=== PATIENT | female | born 1980 | race Caucasian/White ===

== ENCOUNTER 2017-08-30 08:00 | Outpatient (CLI) | payer OTHER ==
[2017-08-30 12:49] LABS: BILIRUBIN,URINE NEGATIVE (NEGATIVE); GLUCOSE, URINE (UA) NEGATIVE (NEGATIVE); KETONES,URINE (UA) 15 mg/dL (NEGATIVE); LEUKOCYTE ESTERASE, URINE NEGATIVE (NEGATIVE); NITRITE,URINE NEGATIVE (NEGATIVE); OCCULT BLOOD,URINE NEGATIVE (NEGATIVE); PROTEIN,URINE NEGATIVE (NEGATIVE); UROBILINOGEN,URINE 0.2 (NORMAL) E.U./dL (NORMAL)
[2017-08-30 12:50] LABS: CLARITY,URINE CLEAR (CLEAR)
[2017-08-30 13:19] LABS: BACTERIA,URINE Moderate /HPF (None Seen); RBC,URINE 0-5 /HPF (0-5); SQUAMOUS EPITHELIAL CELL,UR FEW Squamous (<= Few)
[2017-08-30 13:20] LABS: AMORPHOUS SEDIMENT,UR Moderate /LPF
[2017-08-30 19:04] LABS: BASOPHILS % (AUTO) 0.5 %; EOSINOPHILS # (AUTO) 0.1 10^3/uL (0.0-0.7); EOSINOPHILS % (AUTO) 1.1 %; HGB - HEMOGLOBIN 12.5 g/dL (12.0-16.0); LYMPHOCYTES # (AUTO) 0.9 10^3/uL (1.5-3.5); LYMPHOCYTES % (AUTO) 10.8 %; MEAN CORPUSCULAR HEMOGLOBIN 31.8 pg (27.0-31.0); MEAN CORPUSCULAR HGB CONC 33.4 g/dL (32.0-36.0); MEAN CORPUSCULAR VOLUME 95.3 fL (81.0-99.0); MEAN PLATELET VOLUME 10.5 fL (7.9-10.8); MONOCYTES # (AUTO) 0.4 10^3/uL (0.0-1.0); MONOCYTES % (AUTO) 4.7 %; NEUTROPHILS # (AUTO) 7.1 10^3/uL (1.5-6.6); NEUTROPHILS % (AUTO) 82.9 %; PLT - PLATELET COUNT 211 10^3/uL (130-450); RED BLOOD COUNT 3.91 10^6/uL (4.20-5.40); RED CELL DISTRIBUTION WIDTH 13.3 % (12.0-15.0); WHITE BLOOD COUNT 8.5 x10^3/uL (4.8-10.8)
[2017-08-31 09:07] LABS: HEPATITIS B SURFACE ANTIGEN NON-REACTIVE (NON-REACTIVE); HEPATITIS C ANTIBODY NON-REACTIVE (NON-REACTIVE)
[2017-08-31 15:32] LABS: HIV AG/AB 4TH GEN NON-REACTIVE (NON-REACTIVE)
== END 2017-08-30 08:01 | disposition home or self-care (01) ==
LOC: LAB.N 08:00
PROVIDERS: ATTEND Nurse Practitioner Obstetrics & Gynecology
DX: Z36.9 Encounter for antenatal screening, unspecified (principal)
CPT/HCPCS: 36415; 81001; 81599; 85025; 86592; 86762; 86803; 86850; 86900; 86901; 87340; 87389

== ENCOUNTER 2017-11-17 07:39 | Outpatient (CLI) | payer OTHER ==
--- NOTE | 2017-11-17 09:49 | Ultrasound Report ---
Procedure Date: 11/17/2017 Accession Number: [id number] / [id number] Procedure: US - OB Detailed Eval CPT Code: FULL RESULT: EXAM: OB Detailed Eval DATE: 11/17/2017 9:16 AM CLINICAL HISTORY: ENCTR FOR SUPRVSN OF NORMAL , 2ND TRIM TECHNIQUE: Real-time scanning was performed with advertising representative static images obtained. COMPARISON: None LAST MENSTRUAL PERIOD: Unsure US Age: 22 weeks 1 days EFW Hadlock: 475 grams Heart Rate: 154 bpm US EDC: 03/22/2018 BPD Hadlock: 22 weeks 1 days; Mean mm 53 HC Hadlock: 22 weeks 2 days; Mean mm 201 AC Hadlock: 22 weeks 0 days; Mean mm 170 FL Hadlock: 22 weeks 1 days; Mean mm 38 Presentation: Variable Placental Location: Anterior Cervical Length: 4 cm Amniotic Fluid: VINCENT Subjectively normal cm; MVP 5.4 cm FINDINGS: There is a single live intrauterine gestation in variable presentation with an anterior placenta without evidence of previa with a heart rate of 154 bpm and a normal-appearing three-vessel cord with central insertion into the placenta. The estimated weight is 475 g. The following anatomic structures were visualized and appear normal: The intracranial contents, including the ventricles and posterior fossa; the lips and orbits; the spine; the heart, including 4 chamber view and outflow tracts, and diaphragm; the abdominal contents, including the stomach, the bilateral kidneys, and urinary bladder, as well as a normal 3-vessel cord insertion; 4 limbs. IMPRESSION: Single viable intrauterine gestation with a sonographic age of 22 weeks and 1 day.
== END 2017-11-17 07:40 | disposition home or self-care (01) ==
LOC: DI 07:39
PROVIDERS: ATTEND Registered Nurse
DX: Z34.82 Encounter for supervision of other normal pregnancy, second trimester (principal)
CPT/HCPCS: 76811

== ENCOUNTER 2017-12-22 08:00 | Outpatient (CLI) | payer OTHER ==
[2017-12-22 18:49] LABS: BASOPHILS % (AUTO) 0.3 %; EOSINOPHILS # (AUTO) 0.1 10^3/uL (0.0-0.7); EOSINOPHILS % (AUTO) 0.8 %; HGB - HEMOGLOBIN 11.5 g/dL (12.0-16.0); LYMPHOCYTES # (AUTO) 0.8 10^3/uL (1.5-3.5); LYMPHOCYTES % (AUTO) 7.7 %; MEAN CORPUSCULAR HEMOGLOBIN 32.7 pg (27.0-31.0); MEAN CORPUSCULAR HGB CONC 34.4 g/dL (32.0-36.0); MEAN CORPUSCULAR VOLUME 95.2 fL (81.0-99.0); MONOCYTES # (AUTO) 0.5 10^3/uL (0.0-1.0); MONOCYTES % (AUTO) 4.7 %; NEUTROPHILS # (AUTO) 8.7 10^3/uL (1.5-6.6); NEUTROPHILS % (AUTO) 86.5 %; PLT - PLATELET COUNT 222 10^3/uL (130-450); RED BLOOD COUNT 3.52 10^6/uL (4.20-5.40); RED CELL DISTRIBUTION WIDTH 13.4 % (12.0-15.0); WHITE BLOOD COUNT 10.1 x10^3/uL (4.8-10.8)
== END 2017-12-22 08:01 | disposition home or self-care (01) ==
LOC: LAB.N 08:00
PROVIDERS: ATTEND Nurse Practitioner Obstetrics & Gynecology
DX: Z36.9 Encounter for antenatal screening, unspecified (principal)
CPT/HCPCS: 36415; 82950; 85025; 86850

== ENCOUNTER 2018-02-24 14:37 | Outpatient (CLI) | payer OTHER ==
--- NOTE | 2018-02-24 16:09 | Ultrasound Report ---
Reason: UTERINE SIZE DATE DISCREPANCY, THIRD TRIMESTER Procedure Date: 02/24/2018 Accession Number: [id number] / [id number] Procedure: US - OB F/U or Repeat CPT Code: FULL RESULT: EXAM: COMPLETE OBSTETRICAL ULTRASOUND EXAM DATE: 02/24/2018 03:32 PM. CLINICAL HISTORY: anatomic survey. COMPARISON: OB DETAILED EVALUATION 11/17/2017 7:51 AM. TECHNIQUE: Real-time sonographic evaluation of the fetus performed by the wallpaper embosser helper. Multiple sales representative leather goods static images were saved for review. DATING: Established EGA 35 weeks 2 days with ALEXIS 03/29/2018 based on the referring provider. ALEXIS 03/14/2018 based on the previous ultrasound performed in the second trimester. EGA 37 weeks 3 days with ALEXIS 03/14/2018 based on the current ultrasound. GENERAL EVALUATION Angel . Cardiac activity: 137 bpm. movement: Visualized. Presentation: Cephalic. Placenta: Anterior position. No evidence for previa. Amniotic fluid: VINCENT 18.7 MVP 6.3 cm. BIOMETRY Bi-Parietal Diameter (BPD): 9.1 cm, 36 weeks 6 days Head Circumference (HC): 33.9 cm, 39 weeks 0 days Abdominal Circumference (AC): 33.7 cm, 37 weeks 4 days Femur Length (FL): 7.1 cm, 36 weeks 2 days Estimated Weight: 3185 g, 93rd percentile for 35 weeks 2 days. MATERNAL STRUCTURES Uterus: Unremarkable. Cervix: Long and closed. Transabdominal length 5.3 cm. Free fluid: None. IMPRESSION: 1. Angel live intrauterine with gestational age 35 weeks 2 days based on obstetric provider established due date. 2. Estimated weight is at the 93rd percentile for the established due date. RADIA
== END 2018-02-24 14:38 | disposition home or self-care (01) ==
LOC: DI 14:37
PROVIDERS: ATTEND Registered Nurse
DX: O26.843 Uterine size-date discrepancy, third trimester (principal); Z3A.35 35 weeks gestation of pregnancy
CPT/HCPCS: 76816

== ENCOUNTER 2018-02-27 10:08 | Outpatient (CLI) | payer OTHER | END 2018-02-27 10:09 | disposition home or self-care (01) | LOC: LAB.R 10:08 | PROVIDERS: ATTEND Registered Nurse | DX: Z34.83 Encounter for supervision of other normal pregnancy, third trimester (principal) | CPT/HCPCS: 87077; 87081 ==

== ENCOUNTER 2018-03-20 13:38 | Inpatient (IN) | payer OTHER ==
[~2018-03-20 13:38] MED LIST: ONDANSETRON 4 MG/2 ML VIAL IVP PRN
--- NOTE | 2018-03-20 13:46 | HISTORY & PHYSICAL EXAMINATION ---
Admit History - Visit Reason Visit Reason: Membranes rupture (@ 1305, clear amniotic fluid; ROM + positive) - : 2 Parity: 1 Premature: 0 Ectopic: 0 : 0 Care: positive: IW (x11 visit) Risk/History: positive: None Complications This : positive: Other (AMA; GBS positive; macrosomia on growth scan) Smoking Status: Never smoker - Mother's Labs Mother's Blood Type: positive: O Mother's RH: positive: Negative GBS: positive: Group B Strep Positive Rubella Status: positive: Immune Meds/Allgy - Allergies Allergies/Adverse Reactions: Allergies Allergy/AdvReac Type Severity Reaction Status Date / Time tetracycline Allergy Rash Verified 03/20/18 14:25 Review of Systems - Constitutional Constitutional: reports: Fatigue. denies: Fever, Chills - Eyes Eyes: denies: Blurred vision, Spots in vision - Cardiovascular Cariovascular: denies: Irregular heart rate, Palpitations, Chest pain - Respiratory Respiratory: denies: Cough, SOB at rest, SOB with exertion - Gastrointestinal Gastrointestinal: denies: Abdominal pain, Constipation, Diarrhea, Change in bowel habits, Nausea, Vomiting - Genitourinary Genitourinary: reports: Frequency, Urgency. denies: Dysuria - Musculoskeletal Musculoskeletal: denies: Muscle pain, Back pain - Integumentary Integumentary: denies: Rash, Pruritis, Lesions - Neurological Neurological: denies: General weakness, Focal weakness, Headache, Numbness - Psychiatric Psychiatric: denies: Depression, Anxiety - All Other Systems All Other Systems: reports: Reviewed and negative Physical - Abdominal Exam Vital Signs: 142/85 hr 99 Contraction Frequency (min/apart): rare Contraction Intensity: positive: Mild Uterine Resting Tone: positive: Soft - Monitoring Heart Rate Baseline: 145 Strip Review: positive: Category I - Presentation Presentation: positive: Vertex - Vaginal Exam Membranes: positive: Membranes ruptured - Speculum Exam Speculum Exam Performed: positive: No Findings: positive: Other (ROM + positive) - Other Notes Labor Progress Note/Additional Text: Record Physician: Soleadd Renteria DO EDC: 03/29/2018 Date printed: 03/20/2018 (38.71 wks ) Demographics Name EL DELGADILLO 1980 Age [age] Years Old Race White Status Address [address] Home Phone Other Phone [facility] [place] [address] # [phone] Occupation Work Phone Patient # Insurance [employer] [facility] Policy # [id number] Guarantor EL DELGADILLO FOB Involved Age Race Occupation FOB Phone Support Person Home Phone Relationship [facility] Feeding plans Previous Pregnancies G 2 P 1 Term 1 0 LC 1 Ab 0 SAB 0 EAB 0 Ectopic 0 Mult Preg 0 No Date Wks Gest Delivery Type Hrs Labor Anes Location Infant Comments Sex Weight 1 40 5 [place], [place] M 6lbs 6oz EDC / Dating Information Current best EDC: 03/29/2018 Cycle Interval: LMP: 06/22/2017 =EDC 03/29/2018 Reliability: Pill period? Preg Test Date Initial Exam =EDC Date Steth Tones =EDC Date Quickening =EDC U/S Date GA =EDC Allergies TETRACYCLINE (Critical) Medications [facility] TABLET ( VIT-FE FUMARATE-FA TABS) Take one tablet by mouth daily Current Problems Risk Factors Group B streptococcus carrier (ICD-V02.51) (REP59-O10.330) Supervision of normal (ICD-V22.1) (ZYN29-D00.90) Maternal age = [age] Years Old Prior Operation(s): [place] Teeth (02/25/1992) Smoking: Never smoker Laboratory Test Date Result Hemoglobin Hematocrit ABO / Rh 08/30/2017 O- Hellen Rubella Serology (RPR) 08/30/2017 negative HBsAg 08/30/2017 negative Chlamydia DNA GC DNA Urine Culture PAP HIV MSAFP MSAFP MOM GCT 3hr GTT Fasting 1 hr 2 hr 3 hr Test Date Result U/S NST Amnio RhoGam KB (Fetaldex) Group B Strep cult El Delgadillo is a 37 y/o @ 38w5d by first trimester US. She received care beginning in the first trimester x11 total visits. She is Rh negative & received Rhogam per protocol @ 28 weeks' gestation. Her was complicated by AMA status; she had NIPT screening, which was low-risk & predicted male sex. She had a normal screening anatomy US. She has measured consistently size greater than dates in the third trimester & had a growth ultrasound that demonstrated a normal AFV & EFW 93rd percentile. Pt was counseled re: risks related to increased size & pt declined intervention, specifically declined primary LTCS, and elected to proceed with trial of labor & attempt at vaginal delivery. She articulated full understanding of the risks, including injury or . El's has otherwise been uncomplicated. She was vaccinated against tdap & influenza per protocol during the course of her . She screened positive for GBS @ 36 weeks' gestation. PMH:Unremarkable PSH: [place] tooth extraction 1991; no complications OBhx: 2009 FTSVD male: MAX; 6#6oz, unmedicated GYNhx: Denies hx of STI, no hx abnormal pap, unsure when last conducted, needs pp pap Sochx: to Johny, denies DV; works in the arts, no financial concerns, denies ETOH/drugs/tobacco Famhx: Mental illness, rheumatoid arthritis. PE: GEN: AAOx3, NAD [place] gravid female HEENT: Grossly normocephalic, atraumatic RESP: CTA b/l t/o CARDIAC: RRR nls1s2, no murmur ABD: Gravid, NT; occ palp mild contraction; presentation cephalic; EFW 8 .5# OB: EFM Bl 145bpm, +accels, no decels, mod antony; toco: UCs rare; SVE deferred secondary to SROM : No lesions, leakage of CAF MS: FROM t/o, no lesion, no deformity, no edema SKIN: warm, well-perfused, c/d/i, no lesion NEURO: no focal deficit PSYCH: mild anxiety, otherwise pleasantly conversant Assessment: 37 y/o @ 38w5d by first trimester US s/p SROM @ 1305 for CAF, ROM + positive GBS positive FHTs Cat I Adequate pain control w/o analgesia/anesthesia, desires unmedicated delivery Plan: 1. Admit to FBP 2. CBC/clot to hold 3. Begin PCN per protocol for IPAP 4. Reviewed pain management options 5. Reassess cervical status only w/ clear clinical indication--minimize SVE secondary to SROM Plan for Labor - Plan For Labor I expect patient to be DC'd or transferred within 96 hours.: Yes Plan for Labor: Assessment: 37 y/o @ 38w5d by first trimester US s/p SROM @ 1300 GBS positive CAF FHTs Adequate pain control w/o analgesia/anesthesia, desires unmedicated delivery Plan: 1. Admit to FBP 2. CBC/clot to hold 3. Begin PCN per protocol for IPAP 4. Reviewed pain management options 5. Reassess cervical status only w/ clear clinical indication--minimize SVE secondary to SROM
[2018-03-20] MEDS ORDERED: LIDOCAINE 1% 50 ML MDV ONE (13:47)
[2018-03-20] MEDS ORDERED: OXYTOCIN/SODIUM CHLORIDE 500 ML IV ONE (13:48)
[2018-03-20] MEDS ORDERED: miSOPROStol 200 MCG TABLET ONE (13:48)
[2018-03-20] MEDS ORDERED: ACETAMINOPHEN 325 MG TABLET PO SCH (14:00)
[2018-03-20] MEDS: SODIUM CHLORIDE FLUSH 0.9% 10 ML SYRINGE IVP SCH (14:20)
[2018-03-20] MEDS: LACTATED RINGERS 1,000 ML IV SCH ×2 (14:21→21:47)
[2018-03-20 14:40] LABS: BASOPHILS # (AUTO) 0.1 10^3/uL (0.0-0.1); BASOPHILS % (AUTO) 0.8 %; EOSINOPHILS % (AUTO) 0.3 %; HGB - HEMOGLOBIN 11.2 g/dL (12.0-16.0); LYMPHOCYTES % (AUTO) 8.3 %; MEAN CORPUSCULAR HGB CONC 34.4 g/dL (32.0-36.0); MEAN CORPUSCULAR VOLUME 90.2 fL (81.0-99.0); MEAN PLATELET VOLUME 10.8 fL (7.9-10.8); MONOCYTES # (AUTO) 0.5 10^3/uL (0.0-1.0); MONOCYTES % (AUTO) 3.7 %; NEUTROPHILS # (AUTO) 10.8 10^3/uL (1.5-6.6); NEUTROPHILS % (AUTO) 86.9 %; PLT - PLATELET COUNT 204 10^3/uL (130-450); RED BLOOD COUNT 3.61 10^6/uL (4.20-5.40); RED CELL DISTRIBUTION WIDTH 13.4 % (12.0-15.0); WHITE BLOOD COUNT 12.4 x10^3/uL (4.8-10.8)
[2018-03-20] MEDS ORDERED: PENICILLIN G POTASSIUM 5,000,000 UNIT in SODIUM CHLORIDE 0.9% MINIBAG 100 ML IV ONE (15:00)
[2018-03-20 15:38] LABS: RUPTURE OF MEMBRANES PLUS POSITIVE (NEGATIVE)
[2018-03-20] MEDS ORDERED: miSOPROStol 100 MCG TABLET ONE (16:47)
[2018-03-20] MEDS: miSOPROStol 100 MCG TABLET BC SCH ×2 (16:52→21:09)
--- NOTE | 2018-03-20 16:59 | PROVIDER PROGRESS NOTE ---
Labor Progress Note - Uterine Monitoring Uterine Monitoring Mode: positive: External toco Contraction Frequency (min/apart): RARE Contraction Intensity: positive: Mild Uterine Resting Tone: positive: Soft - Monitoring Monitor Mode: positive: External ultrasound Heart Rate Baseline: 150 Heart Rate Variability: positive: Moderate (6-25 bmp) Accelerations: positive: Present, 15x15 Decelerations: positive: Variable (unclear monitoring from IA to CEFM: 70s but unable to compare to maternal HR secondary to no pulse ox in place; maternal HR when assessed high 70s-80s) Strip Review: positive: Category II - Vaginal Exam Dilation (in cm): 2 Effacement (%): thick Station: Ballotable Cervical Position: Midposition - Labor Progress Note Labor Progress Note/Additional Text: S: Shruthi is doing well. She is anxious to be in active labor. She reports some mild cramping but no other discomfort. She has decided that intervention is preferable at this point vs. expectant management, particularly given SROM, GBS + status, unfavorable cervical status & rare contraction activity. Johny is present @ the bedside & is supportive. O: AAOx3, NAD [place] gravid female VSS: T 98.3, HR 99, BP 142/85, RR 18 EFM: BL 150bpm, +accels, isolated unclear deceleration when transitioning from IA to CEFM, 70s, maternal HR not assessed, unable to clearly differentiate, otherwise no decelerations, mod variability TOCO: rare uterine contractions SVE: 2/thick/high, midposition, ongoing leakage of CAF A: 37 y/o @ 38w5d by first trimester US, SROM @ 1305, for a total ruptured duration of ~4 hours, afebrile, CAF GBS positive s/p 1 dose IV PCN for prophylaxis Unfavorable cervical status, not in labor FHTs cat I w/ exception of one unclear possible deceleration, no evidence of hypoxemia Adequate pain control w/o analgesia/anesthesia P: 1. Reviewed options for management & risks/benefits, pt elects misoprostol 50mcg buccally q 4 hours, will begin now, continue per protocol 2. CEFM from here on out & maternal pulse oximetry--will place FSE if tracing becomes unclear 3. Continue GBS prophylaxis w/ IV PCN per protocol 4. Minimize SVE to only those clinically indicated secondary to SROM, no labor 5. Pt aware of pain management options, will request as she desires, hoping for unmedicated delivery 6. Reviewed plan of care w/ pt, partner & RN @ bedside; all in agreement, without concerns.
[2018-03-20] MEDS ORDERED: PENICILLIN G POTASSIUM 2,500,000 UNIT in SODIUM CHLORIDE 0.9% 100ML 100 ML IV SCH ×4 (19:00)
[2018-03-20] MEDS ORDERED: TERBUTALINE 1 MG/ML VIAL SUBQ ONE ×2 (21:45→22:48)
--- NOTE | 2018-03-20 22:37 | PROVIDER PROGRESS NOTE ---
Labor Progress Note - Uterine Monitoring Uterine Monitoring Mode: positive: External toco Contraction Frequency (min/apart): 2-3 Contraction Intensity: positive: Strong Uterine Resting Tone: positive: Soft - Monitoring Monitor Mode: positive: Spiral electrode Heart Rate Baseline: 150 Heart Rate Variability: positive: Moderate (6-25 bmp) Accelerations: positive: Present, 15x15 Decelerations: positive: Early, Late (to ronda in 120s w/ spontaneous return to baseline < 60 seconds) Strip Review: positive: Category II (w/o evidence of hypoxemia) - Vaginal Exam Dilation (in cm): 2 Effacement (%): 60 Station: Ballotable Cervical Position: Midposition - Labor Progress Note Labor Progress Note/Additional Text: S: Shruthi reports increased cramping w/ uterine contractions. O: AAOx3, NAD [place] gravid female VSS T: 96.8, HR 90bpm, BP 124/56 EFM: BL 150bpm, + accels, + decels: early, late & variable to ronda in 90s on external doppler, FSE placed & decels notable, not recurrent to ronda in 110s w/ spontaneous return to baseline <60 seconds, moderate variability SVE: AROM forebag for copious CAF, 2/60/ballotable, position difficult to appreciate secondary to minimal cervical dilatation, FSE placed A: 37y/o @ 38w5d by first triemester US, SROM @ 1305, for a total ruptured duration of 9 hours, 15 minutes, afebrile GBS positive s/p 3 doses IV PCN for prophylaxis FHTs cat II w/o evidence of hypoxemia Unfavorable cervical status s/p 2 doses buccal misoprostol, now danielle regularly Adequate pain control w/o analgesia/anesthesia, desires unmedicated delivery macrosomia on growth ultrasound P: 1. Reviewed implications of FHTs & present cervical status (remote from delivery) w/ pt & partner @ length 2. Reviewed optimal maternal positioning to facilitate descent 3. Continue GBS prophylaxis w/ IV PCN per protocol 4. Reassess cervical status x2 hours, earlier PRN; additional misoprostol administration dependent on cervical status & tolerance 5. Reviewed plan of care w/ pt, partner & RN @ bedside; all in agreement, without concerns. Dr. Gupta, DO, back-up CONCRETE PIPE MACHINE OPERATOR apprised of clinic scenario.
--- NOTE | 2018-03-20 22:48 | PROVIDER PROGRESS NOTE ---
Labor Progress Note - Uterine Monitoring Uterine Monitoring Mode: positive: External toco Contraction Frequency (min/apart): 3-4 Contraction Intensity: positive: Strong Uterine Resting Tone: positive: Soft - Monitoring Monitor Mode: positive: Spiral electrode Heart Rate Variability: positive: Moderate (6-25 bmp) Accelerations: positive: Present, 15x15 Decelerations: positive: Late Strip Review: positive: Category II - Vaginal Exam Dilation (in cm): 3 Effacement (%): 70 Station: Ballotable Cervical Position: Midposition - Labor Progress Note Labor Progress Note/Additional Text: Shruthi is uncomfortable w/ her contractions. She has not been able to assume the positions she prefers because of heart rate decelerations. SVE: slightly changed FHTs concerning for now repetitive late decelerations w/ steeper ronda & slower recovery; terbutaline 0.2mg SQ administered IV fluid bolus begun Recommend, given FHTs and still remote from delivery & unable to expedite, delivery. Dr. Gupta notified, OR team notified, anesthesia & peds notified via clerical warehouse worker. Pt & partner concur, will plan to proceed to primary LTCS for intolerance of labor, provided Dr. Gupta concurs on her arrival.
[2018-03-20] MEDS ORDERED: CITRIC ACID/SODIUM CITRATE 15 ML UDC PO ONE ×2 (22:50→23:17)
[2018-03-20] MEDS ORDERED: ceFAZolin 2 GM/50 ML 2 GM/50 ML BAG IV SCH (23:00)
--- NOTE | 2018-03-20 23:12 | ANESTHESIA ---
Pre-Anesthesia VS, & Labs - Diagnosis distress - Procedure emerfency c section Vital Signs: Temp Pulse Resp BP Pulse Ox 36.7 C 92 15 142/85 H 100 03/20/18 13:48 03/20/18 13:48 03/20/18 13:48 03/20/18 13:48 03/20/18 13:48 Height 5 ft 8 in Weight (kg) 83.915 kg - NPO Other (less than 4 hours) - Is Patient ?: Yes - Lab Results Current Lab Results: Laboratory Tests 03/20/18 14:32: WBC 12.4 H, RBC 3.61 L, Hgb 11.2 L, Hct 32.5 L, MCV 90.2, MCH 31.0, MCHC 34.4, RDW 13.4, Plt Count 204, MPV 10.8, Neut # (Auto) 10.8 H, Lymph # (Auto) 1.0 L, [place] # (Auto) 0.5, Eos # (Auto) 0.0, Baso # (Auto) 0.1, Absolute Nucleated RBC 0.01, Nucleated RBC % 0.0 Fish Bones: 03/20/18 14:32 Home Medications and Allergies Active Medications Acetaminophen (Tylenol) 650 mg PO Q6H [facility] Last Admin: 03/20/18 14:22 Dose: Not Given Lactated Ringer's (Lr) 1,000 mls @ 150 mls/hr IV .Q6H40M [facility] Last Admin: 03/20/18 21:47 Dose: 150 mls/hr Penicillin G Potassium 2,500, (000 unit/ Sodium Chloride) 100 mls @ 200 mls/hr IV Q4H [facility] Last Infusion: 03/20/18 20:45 Dose: Infused Cefazolin Sodium/Dextrose (Ancef 2 Gm/50 Ml) 2 gm in 50 mls @ 100 mls/hr IV ONCE [facility] Misoprostol (Cytotec) 50 mcg BC Q4H [facility] Last Admin: 03/20/18 21:09 Dose: 50 mcg Ondansetron HCl (Zofran Inj) 4 mg IVP Q4H PRN PRN Reason: Nausea / Vomiting Sodium Chloride (Normal Saline Flush 0.9%) 10 ml IVP PRN PRN PRN Reason: NEEDED PER PROVIDER ORDERS Sodium Chloride (Normal Saline Flush 0.9%) 10 ml IVP 0100,0900,1700 DREW Last Admin: 03/20/18 14:20 Dose: 10 ml Terbutaline Sulfate (Terbutaline) 0.25 mg SUBQ ONCE ONE Stop: 03/20/18 22:49 Allergies/Adverse Reactions: Allergies Allergy/AdvReac Type Severity Reaction Status Date / Time tetracycline Allergy Rash Verified 03/20/18 14:25 Anes History & Medical History - Anesthetic History Anesthesia Complications: reports: No previous complications Family history of Anesthesia Complications: Denies Family history of Malignant Hyperthermia: Denies - Medical History Cardiovascular: reports: None Pulmonary: reports: None Gastrointestinal: reports: None Urinary: reports: None Neuro: reports: None Musculoskeletal: reports: None Endocrine/Autoimmune: reports: None Blood Disorders: reports: None Skin: reports: None Smoking Status: Never smoker Psychosocial: reports: No issues indicated - Obstetrical History : 2 Parity: 1 Events: positive: None Complications: positive: Other (AMA; GBS positive; macrosomia on growth scan) Exam General: Alert, Oriented x3 Mouth Opening: Greater than 4 Fingerbreadths Neck Mobility: Normal Mallampati classification: I Thyromental Distance: greater than 6 cm Respiratory: Lungs clear Cardiovascular: Regular rate Neurological: Normal speech Mental/Cognitive Status: Alert/Oriented X3 Cognitive Status: Within normal limits Plan Anesthesia Type: Spinal Consent for Procedure(s) Verified and Reviewed: Yes Code Status: Attempt Resuscitation ASA classification: 1-Healthy patient Is this case an emergency?: Yes
[2018-03-20] MEDS ORDERED: LACTATED RINGERS 1,000 ML IV ONE ×2 (23:22→23:53)
[2018-03-21] MEDS ORDERED: MAGNESIUM HYDROXIDE 2,400 MG/30 ML UDC PO PRN (00:46)
--- NOTE | 2018-03-21 00:46 | OPERATIVE REPORT ---
Operative Report - General Admit Date: 03/20/18 - Other Other Information/Narrative: Date of Operation: 03/20/2018 Surgeon: Brittany Gupta DO FACOG Access Control Specialist: ATUL [employer] Sales Professional: Zane Simmons CRNA Anesthesia: Spinal Pre-op Dx: 1. 37 yo with a 38w5d IUP 2. NRFHT's Post-op Dx 1. 37 yo with a 38w5d IUP 2. NRFHT's Procedure: delivery Findings: Single viable male infant in VTX presentation. Apgars 8/9. Normal uterus, ovaries and fallopian tubes. Specimens: 1. Cord blood 2. Placenta to pathology Drains: 1. Gaona catheter to gravity 2. Prevena wound vac EBL: 800 mL Complications: None [id number]
[2018-03-21] MEDS: fentaNYL 100 MCG/2 ML VIAL ONE ×3 (00:59→01:25)
[2018-03-21] MEDS: oxyCODONE 5 MG TABLET PO SCH ×3 (01:47→10:16)
[2018-03-21] MEDS ORDERED: KETOROLAC 30 MG/ML VIAL IVP ONE (01:47)
[2018-03-21] MEDS ORDERED: HYDROmorphone 2 MG/ML VIAL IVP PRN (01:47)
[2018-03-21] MEDS ORDERED: KETOROLAC 30 MG/ML VIAL IVP SCH (01:55)
[2018-03-21] MEDS: ACETAMINOPHEN 500 MG TABLET PO SCH ×3 (02:20→18:16)
[2018-03-21] MEDS: SODIUM CHLORIDE FLUSH 0.9% 10 ML SYRINGE IVP PRN ×2 (03:19→16:11)
--- NOTE | 2018-03-21 03:26 | CONSULTATION NOTE ---
DATE OF CONSULTATION: 03/20/2018 Physician: Brittany Gupta DO IDENTIFICATION: A 37-year-old G2, P1-0-0-1 with a 38-5/7-week intrauterine consistent with an 8-week ultrasound. HISTORY OF PRESENT ILLNESS: The patient is a patient of [facility] [place] who presented earlier today with complaints of loss of fluid. It was noted to be at about 1305. Clear amniotic fluid was noted. A ROM Plus was performed, which turned out to be positive. The patient's initial cervical exam was deferred at the time of presentation secondary to minimizing the chance of the patient getting chorioamnionitis. The patient was given Cytotec p.o. in order to ripen her cervix. On initial examination, baseline heart tones were in the 140s with accels; there are no decelerations. Moderate variables were noted. Contractions were rare. The patient was monitored and started on penicillin for being GBS positive. There were concerns, however, of a nonreassurance. Patient showed a slow increase in her baseline rising to the 150s. decels were noted to be down to the 80s. The patient was given terbutaline, and the variable decelerations and late decelerations were improved. Cervical examination showed that the patient had only progressed to 3 cm dilation. Given that the patient was remote from delivery and showing signs of nonreassuring heart tones, I recommended to patient that we proceed to a delivery. Further options are to proceed to a vaginal trial of labor, but, given what is going on so far, I am concerned that we may have to perform a crash delivery should we continue a vaginal trial of labor. I discussed with patient the risks, benefits, alternatives, indications, and expectations of a delivery. Included in our discussion was the risk of hemorrhage, infection and damage to surrounding organs, which may be an inadvertent laceration, cauterization or ligation of adjacent intestines, bladder, and ureters. The patient may proceed to vaginal after a delivery for her next , given the indication for delivery and that she has had a previous vaginal delivery. After all of the patient's questions were answered to her satisfaction, she verbalized her desire to proceed with delivery. Consent forms have been signed. PAST MEDICAL HISTORY: None. PAST SURGICAL HISTORY: None. ALLERGIES: TETRACYCLINE. SOCIAL HISTORY: Denies any tobacco, alcohol, or illicit drug use. Her is Johny. This is a male named Tho. PAST OBSTETRICAL HISTORY: She had a vaginal delivery at 40 weeks of a 6-pound 6-ounce male in [place], [place]. With this , she has had 11 visits. She started having care with us at 8 weeks' gestation and has had consistent good care. This has been remarkable for notation that the baby is measuring size greater than dates. An ultrasound revealed that the baby was in the 93rd percentile. She was offered a delivery secondary to potential of shoulder dystocia. The patient at that time declined that option. PAST GYNECOLOGICAL HISTORY: She denies any abnormal Pap smears or sexually transmitted diseases. FAMILY HISTORY: Noncontributory. REVIEW OF SYSTEMS: Negative unless otherwise stated. OBJECTIVE VITAL SIGNS: Temperature is 36.7, heart rate 92, blood pressure 142/85, respiratory rate 15, O2 sat 100%. GENERAL: The patient is a well-developed, well-nourished, female in no apparent distress. She is alert and oriented x3. The patient is feeling some contractions. HEENT: Within normal limits. CARDIOVASCULAR: Regular. No murmurs, rubs. PULMONARY: Lungs are clear to auscultation bilaterally. ABDOMEN: Gravid, nontender. Baby is vertex. Estimated weight is 9 pounds. STUDIES laboratory data reveal that she is O negative, HIV negative, RPR nonreactive, rubella immune. Hepatitis B surface antigen nonreactive. One-hour GTT is 120, GBS is positive. anatomical survey was consistent with dates and within normal limits. Placenta was noted to be anterior. ASSESSMENT 1. A 37-year-old G2, P1-0-0-1 with 38-5/7-week intrauterine . 2. Nonreassuring heart tones. 3. Group B streptococcus positive. 4. Suspected macrosomia. PLAN 1. I have consented the patient for a delivery, which we will proceed to at this point in time. 2. We will plan to give Ancef 2 gram IV for postoperative cellulitis prophylaxis. 3. Anticipate using a Prevena wound VAC. 4. Routine care including aggressive pain control with Celebrex and acetaminophen routinely. TD: 03/20/2018 23:26 [facility]
--- NOTE | 2018-03-21 03:29 | OPERATIVE REPORT ---
DATE OF OPERATION: 03/20/2018 PREOPERATIVE DIAGNOSES 1. A 37-year-old G2, P1-0-0-1, with 38-5/7 weeks intrauterine . 2. Nonreassuring heart tones. POSTOPERATIVE DIAGNOSES 1. A 37-year-old G2, P1-0-0-1, with 38-5/7 weeks intrauterine . 2. Nonreassuring heart tones. PROCEDURE: delivery. SURGEON: Brittany Gupta DO, FACOG WIRE SPOOLER: Kevin Aviles CNM, JUAN CARLOS PHOTOENGRAVING PROOFER: Zane Simmons CRNA ANESTHESIA: Spinal. FINDINGS: A single viable male , "Tho" in vertex presentation. Apgars 8 and 9 at one and five minutes, respectively. Normal uterus, ovaries and fallopian tubes. SPECIMENS 1. Cord blood. 2. Placenta to Pathology. DRAINS 1. Gaona catheter to gravity. 2. Prevena wound VAC. ESTIMATED BLOOD LOSS: 800 mL COMPLICATIONS: None. BRIEF HISTORY: Patient is a patient of [facility] who presented after spontaneously rupturing her membranes. She was admitted to the hospital and started on penicillin for GBS prophylaxis. Patient was also given Cytotec for induction of labor. Patient was noted to have recurrent variable and late decelerations. Cervical examination revealed that she was only 3 cm dilated. Given the nonreassuring heart tones and cervix remote from delivery, it was recommended patient undergo a delivery. I discussed with patient the risks, benefits, alternatives, indications, and expectations of a delivery. Included in our discussion were risks of hemorrhage, infection and damage to surrounding organs, which may be inadvertent laceration, cauterization or ligation of adjacent bladder intestines and ureters. After patient's questions were answered to her satisfaction, she verbalized her desire to proceed with surgery. Consent forms have been signed. OPERATION IN DETAIL: Patient was identified and consented, taken to the operating room where IV access was already in place. She was then given satisfactory spinal anesthesia per Crow Simmons. Sequential compression devices were placed on her lower extremities and turned on. A Gaona catheter was placed in her bladder. Patient was given 2 grams of Ancef IV prior to start of skin incision. Patient was then prepped and draped in a normal sterile fashion in the dorsal supine position with a leftward tilt. Skin testing was performed x2, which was found to be satisfactory. A timeout was then performed, which correctly identified the patient, time of procedure, and the procedure itself. A Pfannenstiel skin incision was made approximately 2 fingerbreadths above the level of pubic symphysis. It was then carried to the underlying layer of fascia with electrocautery. The fascia was then nicked in the midline and extended laterally. Rectus muscles were then dissected off the fascia. The rectus muscles were then bluntly in the midline and then peritoneum entered bluntly. The incision was then extended superiorly and inferiorly. A bladder flap was then created by dissecting out the vesicouterine peritoneum. The hysterotomy was made in a transverse U-shaped fashion in the lower uterine segment. Hysterotomy revealed clear fluid. With the help of fundal pressure, the 's head was delivered through the hysterotomy. The mouth and nose were suctioned with the bulb syringe. Nuchal cord x1 was noted and was reduced easily. Again, with the help of fundal pressure, the rest of the infant was delivered through the hysterotomy without difficulty. Nose and mouth were also suctioned with a bulb syringe. The umbilical cord was doubly clamped and cut, and the infant was then handed off to Dr. Reece Farah, the on-call textile screen printer. The uterus was then internally massaged and placenta delivered manually. The uterus was then delivered out of the abdomen and cleared of all clots and debris. Hysterotomy was then closed with 2 sutures of 0 Vicryl, first in a running locked fashion, then in an imbricating fashion using the Lembert stitch. Hemostasis was noted. The uterus was then returned to the abdomen. The abdomen was then copiously irrigated and found to be hemostatically stable. The peritoneum was then closed with a running stitch of 2-0 Vicryl. The same stitch was used to reapproximate the rectus muscles. Fascia was then closed with a running stitch of 0 Vicryl. The Camper fascia was then reapproximated with 2-0 Vicryl in a running fashion. Skin was then reapproximated with 4-0 Monocryl in a subcuticular fashion. A Prevena wound VAC was then placed on top of the incision. All sponge, lap, and needle counts were correct x2 as per nurse report. Patient tolerated the procedure well and was taken back to the recovery room in stable and awake condition. She will be given routine care including [id number] Celebrex, Tylenol, and oxycodone. She will be given routine care. TD: 03/21/2018 00:56 YOSHI
[2018-03-21] MEDS: SIMETHICONE CHEW 80 MG TABLET PO SCH ×3 (07:55→17:14)
[2018-03-21] MEDS: CELECOXIB 100 MG CAPSULE PO SCH ×2 (08:16→21:49)
[2018-03-21] MEDS: DOCUSATE SODIUM 100 MG CAPSULE PO SCH ×2 (09:13→21:49)
[2018-03-21] MEDS ORDERED: RHO(D) IMMUNE GLOBULIN 300 MCG SYRINGE IVP ONE (10:27)
[2018-03-21] MEDS: SODIUM CHLORIDE FLUSH 0.9% 10 ML SYRINGE IVP SCH ×3 (12:11→22:28)
--- NOTE | 2018-03-21 12:39 | PROVIDER PROGRESS NOTE ---
Subjective - Prog Note Date Prog Note Date: 03/21/18 Prog Note Time: 12:37 - Subjective Pt reports feeling: No change Subjective: Shruthi laying in bed with baby on her chest. IV dilaudid this AM helped a lot. Normal vaginal bleeding per RN. Hasn't ambulated yet but willis out. Took oxycodone 10 mg 1 hr ago and pain 5-6/10. No nausea, vomiting, fevers or chills. Baby latching. Objective - Vital Signs/Intake & Output Reviewed Vital Signs: Yes Vital Signs: Vital Signs x48h Temp Pulse Resp BP Pulse Ox 03/21/18 11:45 98.1 F 83 18 117/59 L 98 03/21/18 08:00 97.9 F 86 18 113/67 99 Intake & Output: Intake & Output 03/18/18 03/19/18 03/20/18 03/21/18 23:59 23:59 23:59 23:59 Intake Total 392.5 1760 Output Total 700 Balance 392.5 1060 - Objective General Appearance: positive: No acute distress Eyes Bilateral: positive: Normal inspection Abdomen: positive: Non-tender (Soft, benign. Firm fundus. Prevena wound vac intact and working well. Instructed patient how to care for wound vac.) Neurologic/Psychiatric: positive: Oriented x3, Mood/affect nml - Lab Results Fish Bones: 03/20/18 14:32 Other Labs: Lab Results x24hrs 03/21/18 03/20/18 03/20/18 Range/Units 03:54 14:37 14:32 WBC (4.8-10.8) x10^3/uL RBC (4.20-5.40) 10^6/uL Hgb (12.0-16.0) g/dL Hct (37.0-47.0) % MCV (81.0-99.0) fL MCH (27.0-31.0) pg MCHC (32.0-36.0) g/dL RDW (12.0-15.0) % Plt Count (130-450) 10^3/uL MPV (7.9-10.8) fL Neut # (Auto) (1.5-6.6) 10^3/uL Lymph # (Auto) (1.5-3.5) 10^3/uL Pickett # (Auto) (0.0-1.0) 10^3/uL Eos # (Auto) (0.0-0.7) 10^3/uL Baso # (Auto) (0.0-0.1) 10^3/uL Absolute Nucleated RBC x10^3/uL Nucleated RBC % /100WBC Membranes Rupture POSITIVE A (NEGATIVE) Blood Type O NEGATIVE O NEGATIVE Weak D (Du) WEAK-D NEGATIVE Antibody Screen POSITIVE Antibody Identification Anti-D Maternal Bleed NEGATIVE (NEGATIVE) 03/20/18 Range/Units 14:32 WBC 12.4 H (4.8-10.8) x10^3/uL RBC 3.61 L (4.20-5.40) 10^6/uL Hgb 11.2 L (12.0-16.0) g/dL Hct 32.5 L (37.0-47.0) % MCV 90.2 (81.0-99.0) fL MCH 31.0 (27.0-31.0) pg MCHC 34.4 (32.0-36.0) g/dL RDW 13.4 (12.0-15.0) % Plt Count 204 (130-450) 10^3/uL MPV 10.8 (7.9-10.8) fL Neut # (Auto) 10.8 H (1.5-6.6) 10^3/uL Lymph # (Auto) 1.0 L (1.5-3.5) 10^3/uL Pickett # (Auto) 0.5 (0.0-1.0) 10^3/uL Eos # (Auto) 0.0 (0.0-0.7) 10^3/uL Baso # (Auto) 0.1 (0.0-0.1) 10^3/uL Absolute Nucleated RBC 0.01 x10^3/uL Nucleated RBC % 0.0 /100WBC Membranes Rupture (NEGATIVE) Blood Type Weak D (Du) Antibody Screen Antibody Identification Maternal Bleed (NEGATIVE) Assessment/Plan - Problem List (1) delivery delivered Impression: 37 yo S/p primary CD, POD #0 Normal recovery Will optimize pain control by switching to oral dilaudid Saline lock Shower today Routine care
[2018-03-21] MEDS: HYDROmorphone 2 MG TABLET PO SCH ×3 (13:03→21:45)
[2018-03-21] MEDS: KETOROLAC 30 MG/ML VIAL IVP SCH (16:10)
[2018-03-21] MEDS: LACTATED RINGERS 1,000 ML IV SCH ×2 (22:28→22:29)
[2018-03-21] MEDS: OXYTOCIN/SODIUM CHLORIDE 500 ML IV SCH ×2 (22:28→22:30)
[2018-03-21] MEDS ORDERED: ONDANSETRON 4 MG/2 ML VIAL IVP ONE (23:50)
[2018-03-21] MEDS ORDERED: OXYTOCIN 10 UNIT/ML VIAL IV ONE (23:50)
[2018-03-22] MEDS: ACETAMINOPHEN 500 MG TABLET PO SCH ×3 (01:51→17:48)
[2018-03-22] MEDS: HYDROmorphone 2 MG TABLET PO SCH ×5 (01:52→19:19)
[2018-03-22] MEDS: SODIUM CHLORIDE FLUSH 0.9% 10 ML SYRINGE IVP SCH ×3 (06:10→16:42)
[2018-03-22] MEDS: SIMETHICONE CHEW 80 MG TABLET PO SCH ×4 (08:49→18:26)
[2018-03-22] MEDS: DOCUSATE SODIUM 100 MG CAPSULE PO SCH ×2 (08:54→21:53)
[2018-03-22] MEDS: CELECOXIB 100 MG CAPSULE PO SCH ×2 (08:54→21:53)
--- NOTE | 2018-03-22 13:20 | PROVIDER PROGRESS NOTE ---
Subjective - Prog Note Date Prog Note Date: 03/22/18 Prog Note Time: 13:17 - Subjective Pt reports feeling: Improved Subjective: Shruthi sitting comfortably in bed nursing annie Nettles. Pain much better (3- 4/10) with 4 mg dilaudid. Took a shower last PM and feeling much better. Ambulating and urinating well. Peds planning on discharge to home tomorrow. Objective - Vital Signs/Intake & Output Reviewed Vital Signs: Yes Vital Signs: Vital Signs x48h Temp Pulse Resp BP Pulse Ox 03/22/18 12:11 98.2 F 77 20 118/59 L 98 03/22/18 08:00 98.1 F 87 15 123/64 99 03/22/18 05:20 98.1 F 86 18 108/57 L 98 Intake & Output: Intake & Output 03/19/18 03/20/18 03/21/18 03/22/18 23:59 23:59 23:59 23:59 Intake Total 392.5 2610 Output Total 3050 Balance 392.5 -440 - Objective General Appearance: positive: No acute distress Eyes Bilateral: positive: Normal inspection Abdomen: positive: Non-tender (Wound vac intact and working well) - Lab Results Fish Bones: 03/20/18 14:32 Assessment/Plan - Problem List (1) delivery delivered Impression: 37 yo S/p CD, POD #1 Normal recovery Continue current care Anticipate discharge to home tomorrow [id number]
[2018-03-22] MEDS: LACTATED RINGERS 1,000 ML IV SCH ×2 (13:55→18:30)
[2018-03-22] MEDS: KETOROLAC 30 MG/ML VIAL IVP SCH (13:58)
--- NOTE | 2018-03-22 20:51 | DISCHARGE SUMMARY ---
Physician: Brittany Gupta DO FACOG DATE OF ADMISSION: 03/20/2018 DATE OF DISCHARGE: 03/23/2018 DIAGNOSES ON ADMISSION 1. A 37-year-old G2, P1-0-0-1 with a 38-5/7-week intrauterine . 2. Spontaneous rupture of membranes. 3. GBS positive. DIAGNOSES ON DISCHARGE 1. A 37-year-old G2, P2-0-0-2, status post primary low transverse delivery 03/20/2018. 2. Normal recovery. BRIEF HISTORY: The patient is a patient of the midwifery service at [facility]. The patient has had good care with us. The patient presented after spontaneously rupturing her membranes. She was admitted to the hospital and given penicillin IV for GBS prophylaxis. The patient was also having rare contractions, so she was given p.o. Cytotec for induction of labor. The baby, however, began to show signs of nonreassuring heart tones. The patient underwent a primary delivery and had a viable male infant named Tho. Apgars were 8 and 9 at one and five minutes, respectively. He delivered at 2350. Tho weighed 3408 grams. The surgery went well and without complications. The patient did receive a Prevena wound VAC at the conclusion of her surgery. The patient's postoperative course has only been remarkable for a difficult time controlling her pain. The patient was given IV Dilaudid in recovery and did quite well on this. She was later converted to oral oxycodone, which did not control her pain as well. Because of this the patient was given oral Dilaudid 4 mg for breakthrough pain. Otherwise, the patient is doing well. She is ambulating and tolerating her diet. She is urinating without difficulty, and her pain is controlled with oral medications. The patient will be discharged to home on 03/23/2018. I have given the patient instructions to take ibuprofen and Tylenol as her primary form of pain control. Prescriptions for these medications have been written. Should the patient have any breakthrough pain, another prescription for Dilaudid has been written for her as well. The patient is to have modified activity and not to lift more than a gallon of milk. She may slowly increase activity as she feels she is able to. The patient is to see me at [facility] at the end of this week for removal of Prevena wound VAC. She is to call if she was having worsening fevers, chills, abdominal pain, or vaginal bleeding. TD: 03/22/2018 13:40 MTDFran
[2018-03-23] MEDS: HYDROmorphone 2 MG TABLET PO SCH ×3 (05:23→10:27)
[2018-03-23] MEDS: SIMETHICONE CHEW 80 MG TABLET PO SCH (05:31)
[2018-03-23] MEDS: OXYTOCIN/SODIUM CHLORIDE 500 ML IV SCH (05:50)
[2018-03-23] MEDS: LACTATED RINGERS 1,000 ML IV SCH ×2 (05:50→08:28)
[2018-03-23] MEDS: SODIUM CHLORIDE FLUSH 0.9% 10 ML SYRINGE IVP SCH ×2 (05:50→08:29)
[2018-03-23] MEDS: ACETAMINOPHEN 500 MG TABLET PO SCH ×2 (05:51→09:30)
--- NOTE | 2018-03-23 08:38 | PROVIDER PROGRESS NOTE ---
Subjective - Prog Note Date Prog Note Date: 03/23/18 Prog Note Time: 08:35 - Subjective Pt reports feeling: Improved Subjective: Shruthi sitting in bed, breast feeding Tho and eating breakfast. Doing better as her night was better. Shruthi got more sleep. Still ambulating and tolerating a regular diet. Urinating without difficulty. Normal lochia. Desires to go home. Doing well on dilaudid. Objective - Vital Signs/Intake & Output Reviewed Vital Signs: Yes Vital Signs: Vital Signs x48h Temp Pulse Resp BP Pulse Ox 03/23/18 02:00 98.1 F 71 16 117/76 98 Intake & Output: Intake & Output 03/20/18 03/21/18 03/22/18 03/23/18 23:59 23:59 23:59 23:59 Intake Total 392.5 2610 1000 Output Total 3050 Balance 392.5 -440 1000 - Objective General Appearance: positive: No acute distress Eyes Bilateral: positive: Normal inspection Abdomen: positive: Non-tender (Wound vac on and working well) Skin: positive: Color nml Neurologic/Psychiatric: positive: Oriented x3 - Lab Results Fish Bones: 03/20/18 14:32 Assessment/Plan - Problem List (1) delivery delivered Impression: 37 yo S/p CD, POD #2 Normal recovery Routine care Discharge to home today. Discharge Plan Disposition: 01 Home, Self Care Condition: Good Diet: Regular Activity Restrictions: Activity as Tolerated (No lifting > 1 gallon of milk) Shower Restrictions: No Driving Restrictions: Yes (Do not drive after taking dilaudid) Weight Bearing: Full Weight Additional Instructions or Follow Up instructions: Rx for tylenol, motrin and dilaudid. Take tylenol and motrin first. Call for worsening fevers, chills, abdominal pain or vaginal bleeding. Follow up next week for removal of Prevena wound vac. No Smoking: If you smoke, Please STOP! Call for help.
[2018-03-23 08:57] VITALS: BP 130/72
[2018-03-23] MEDS: DOCUSATE SODIUM 100 MG CAPSULE PO SCH (09:29)
[2018-03-23] MEDS: CELECOXIB 100 MG CAPSULE PO SCH (09:30)
--- NOTE | 2018-03-23 11:18 | Labor Flowsheet ---
Labor Flowsheet Datetime Report Generated by CPN: 03/23/2018 11:18 Datetime: 03/23/2018 08:42 VITAL SIGNS NBP Sys/Angely/Mean (mmHg): 130 : 72 : 84 Pulse: 93 LaborFlag: Labor Datetime: 03/23/2018 05:34 SpO2 (%): 99 Datetime: 03/21/2018 00:22 Membranes Ruptured Date/Time: 03/20/2018 13:06 Membranes Rupture Method: Spontaneous Amniotic Fluid Color: Clear Amniotic Fluid Amount: Moderate Amniotic Fluid Odor: Normal Datetime: 03/20/2018 23:15 Comments: FSE out by CNM Datetime: 03/20/2018 23:02 COMMUNICATION Communication: Provider at Bedside Provider Notified (Name): Simmons Communication Comments: @ bedside to discuss anesthesia for c/s Datetime: 03/20/2018 22:52 Patient Care Comments: Up to BSC; 600mL clear urine Datetime: 03/20/2018 22:50 Strip Reviewed by: Dr. Candy Datetime: 03/20/2018 22:46 Respirations: 20 Temperature (C): 36.7 Datetime: 03/20/2018 22:42 VAGINAL EXAM Dilatation (cm): 3.0 Exam by: M Traci, CNM, LITHOGRAPHING MACHINE OPERATOR Datetime: 03/20/2018 22:39 Decelerations: Late Datetime: 03/20/2018 22:37 MEDICATIONS Tocolytics: Terbutaline 0.25mg Subcutaneous Provider Reviewed Strip: Yes Datetime: 03/20/2018 22:30 UTERINE ACTIVITY Monitor Mode: External Frequency (min): 2.5-3.5 Quality: Moderate Duration (sec): 60-100 Pattern: Normal: <= 5 Contractions in 10 Minutes Resting Tone (Palpate): Relaxed ASSESSMENT A Monitor Mode: Internal Scalp Electrode FHR Baseline Rate : 150 Variability: Moderate 6-25 bpm Accelerations: None Category: Category II Datetime: 03/20/2018 22:01 Oxygen Method: Room Air Datetime: 03/20/2018 22:00 Contraction Comments: coupleting noted Datetime: 03/20/2018 21:59 Monitor Interventions for FHR: FSE Applied Datetime: 03/20/2018 21:56 Actions for Decelerations: Oxygen Applied Datetime: 03/20/2018 21:50 Patient Position/Activity: Right Extreme Datetime: 03/20/2018 21:30 FHR Baseline Changes: Tachycardia Vibroacoustic Stim: Datetime: 03/20/2018 21:19 Monitor Interventions for UA: [place] Adjusted Datetime: 03/20/2018 21:11 PATIENT CARE IV/Blood Work: IV Bolus Started Datetime: 03/20/2018 21:04 Temperature Route: Oral Datetime: 03/20/2018 20:23 I/O Interventions: Up to BR Datetime: 03/20/2018 19:34 Antibiotics: Penicillin IV (Units) @ 2.5 million Datetime: 03/20/2018 19:22 Stage of : Labor PAIN Pain Scale: 0 Pain Presence: None/Denies Pain Coping: Talking Through Contractions MATERNAL ASSESSMENT Level of Consciousness: Fully Conscious DTR's/Clonus: DTRs 2+; No Clonus Headache: Denies Breath Sounds, Left: Clear and Equal Breath Sounds, Right: Clear and Equal Nausea/Vomiting: Denies RUQ Epigastric Pain: Denies Comfort Measures: Breathing/Relaxation TEACHING Instructional Method: Verbal Plan of Care: Plan of Care Discussed; Labor Unit Routine: [place] to Room; Monitoring Labor/Induction: Labor Stages; Cervical Ripening Datetime: 03/20/2018 16:53 Cervical Ripening Agents: Cytotec @ Datetime: 03/20/2018 16:44 Station: -3 Cervix, Consistency: Moderate Cervix, Position: Posterior Datetime: 03/20/2018 16:26 Effacement (%): 40 Vaginal Exam Comments: no cord prolapse felt Datetime: 03/20/2018 15:29 ROM Test Kit: Positive Datetime: 03/20/2018 13:46 Membrane Comments: Patient states LOF starting at 1305 today. Stated fluid was clear - per provide r, ROM plus to be collected. Pain Management: IV Narcotics; Epidural; PRN Medications; Pain Scale/Goals; Comfort Measures
== END 2018-03-23 11:00 | disposition home or self-care (01) | DRG 788 ==
LOC: WFO 13:38 → FBP 13:39 → WFO 13:40 → FBP 13:41
PROVIDERS: ADMIT Registered Nurse; ATTEND Obstetrics & Gynecology
PROC: 10907ZC Drainage of Amniotic Fluid, Therapeutic from Products of Conception, Via Natural or Artificial Opening (ICD-10-PCS; 2018-03-20)
PROC: 10D00Z1 Extraction of Products of Conception, Low, Open Approach (ICD-10-PCS; principal; 2018-03-20 23:30)
DX: O99.824 Streptococcus B carrier state complicating childbirth (principal); O76 Abnormality in fetal heart rate and rhythm complicating labor and delivery; O26.843 Uterine size-date discrepancy, third trimester; O26.893 Other specified pregnancy related conditions, third trimester; Z3A.38 38 weeks gestation of pregnancy; Z37.0 Single live birth; Z67.41 Type O blood, Rh negative
CPT/HCPCS: 83033; 84112; 85025; 86850; 86870; 86900; 86901; 87491; 87591

== ENCOUNTER 2018-11-02 08:00 | Outpatient (CLI) | payer OTHER ==
[2018-11-02 21:29] LABS: CANDIDA GROUP DNA POSITIVE (NEGATIVE); CANDIDA KRUSEI DNA NEGATIVE (NEGATIVE); TRICHOMONAS VAGINALIS DNA NEGATIVE (NEGATIVE)
== END 2018-11-02 23:59 | disposition home or self-care (01) ==
LOC: LAB.R 08:00
PROVIDERS: ATTEND Obstetrics & Gynecology
DX: B37.9 Candidiasis, unspecified (principal)
CPT/HCPCS: 87661; 87801

== ENCOUNTER 2019-05-08 08:00 | Outpatient (CLI) | payer OTHER ==
[2019-05-09 21:30] LABS: CANDIDA GROUP DNA NEGATIVE (NEGATIVE); CANDIDA KRUSEI DNA NEGATIVE (NEGATIVE); TRICHOMONAS VAGINALIS DNA NEGATIVE (NEGATIVE)
[2019-05-12 00:50] LABS: SOURCE CERVIX
== END 2019-05-08 08:01 | disposition home or self-care (01) ==
LOC: LAB.R 08:00
PROVIDERS: ATTEND Obstetrics & Gynecology
DX: B37.9 Candidiasis, unspecified (principal); R21 Rash and other nonspecific skin eruption
CPT/HCPCS: 87529; 87661; 87801